=== PATIENT | male | born 1990 | race Two or more races ===

== ENCOUNTER 2024-10-25 17:54 | Emergency (ER) | payer OTHER ==
[~2024-10-25] VITALS: Ht 170.2 cm; Wt 93.4 kg
[2024-10-25] MEDS ORDERED: LIDOCAINE HCL 1% 10ML VIAL ONE (19:04)
[2024-10-25] MEDS ORDERED: DUI500 PO (19:59)
[2024-10-25] MEDS ORDERED: CEFTRIAXONE SODIUM 1,000 MG VIAL IM ONE (20:00)
[2024-10-25] MEDS ORDERED: TETANUS & DIPHTHERIA TOX,ADULT 0.5 ML VIAL IM ONE (20:00)
[2024-10-25] MEDS ORDERED: TETANUS DIPHTHERIA TOX. ADSOR 5 ML VIAL IM ONE (20:03)
[2024-10-25] MEDS ORDERED: CEFTRIAXONE SODIUM 1,000 MG VIAL ONE (20:03)
== END 2024-10-25 20:20 | disposition home or self-care (01) ==
LOC: ER 17:56
DX: S61.412A Laceration without foreign body of left hand, initial encounter (principal); W26.0XXA Contact with knife, initial encounter; Y93.89 Activity, other specified; Y92.098 Other place in other non-institutional residence as the place of occurrence of the external cause; Y99.8 Other external cause status
CPT/HCPCS: 12042; 90471; 90714; J1670